=== PATIENT | female | born 1985 | race Asian ===

== ENCOUNTER 2016-10-24 13:15 | Outpatient (CLI) | payer MEDICAID | END 2016-10-24 13:16 | disposition home or self-care (01) | DX: Z13.9 Encounter for screening, unspecified (principal) ==

== ENCOUNTER 2017-07-13 10:20 | Outpatient (CLI) | payer MEDICAID | END 2017-07-13 10:21 | disposition home or self-care (01) | LOC: DI 10:20 | PROVIDERS: ATTEND Nurse Practitioner Gerontology | DX: Z53.9 Procedure and treatment not carried out, unspecified reason (principal) ==

== ENCOUNTER 2017-08-16 21:40 | Emergency (ER) | payer MEDICAID ==
[2017-08-16 21:46] VITALS: BP 108/65
--- NOTE | 2017-08-16 21:58 | ED Physician Documentation ---
PD HPI URI - Stated complaint Stated Complaint: COUGH - Chief complaint Chief Complaint: Heent - History obtained from History obtained from: Patient - History of Present Illness Timing - onset: How many weeks ago (2) Timing details: Gradual onset, Still present Associated symptoms: Productive cough. No: Fever, Chills Contributing factors: No: Sick contact Similar symptoms before: No diagnosis Recently seen: Not recently seen - Additional information Additional information: patient is a 31 year old female with no significant past medical history who is presenting to the emergency department for cough and blood tinged sputum. patient states that she has had a cough for the past couple of weeks. patient noticed today that there were some specks of blood in her cough so she came to the emergency department for evaluation. Review of Systems Constitutional: denies: Fever, Chills Eyes: reports: Reviewed and negative Ears: denies: Ear pain, Drainage/discharge Nose: reports: Congestion. denies: Rhinorrhea / runny nose Throat: denies: Dental pain / toothache, Sore throat Cardiac: denies: Chest pain / pressure Respiratory: reports: Cough, Hemoptysis. denies: Wheezing GI: denies: Nausea, Vomiting : denies: Dysuria, Frequency Skin: denies: Rash, Lesions Musculoskeletal: denies: Neck pain, Back pain Neurologic: reports: Reviewed and negative Psychiatric: reports: Reviewed and negative Endocrine: reports: Reviewed and negative Immunocompromised: denies: Immunocompromised PD PAST MEDICAL HISTORY - Past Medical History Past Medical History: Yes Cardiovascular: None Respiratory: None Neuro: Headache/migraine Endocrine/Autoimmune: None - Past Surgical History Past Surgical History: No - Present Medications Home Medications: Ambulatory Orders Medication Instructions Recorded Confirmed Benzonatate [Tessalon] 100 mg PO TID PRN #20 capsule 08/03/16 Dexamethasone [Decadron] 4 mg PO DAILY #5 tablet 08/03/16 Minocycline HCl [Minocin] 50 mg PO 08/03/16 guaiFENesin/CODEINE [Robitussin AC] 10 ml PO Q6H PRN #240 ml 08/03/16 Benzonatate [Tessalon] 100 mg PO TID #20 capsule 08/16/17 Codeine Phosphate/Guaifenesin 10 ml PO DAILY PRN #120 ml 08/16/17 [Guaifen-Codeine 100-10 mg/5 ml] predniSONE [Prednisone] 40 mg PO DAILY 5 Days tablet 08/16/17 - Allergies Allergies/Adverse Reactions: Allergies Allergy/AdvReac Type Severity Reaction Status Date / Time No Known Drug Allergies Allergy Verified 08/16/17 21:46 - Social History Does the pt smoke?: Yes Smoking Status: Current every day smoker Does the pt drink ETOH?: No Does the pt have substance abuse?: No - Immunizations Immunizations are current?: Yes - POLST Patient has POLST: No PD ED PE NORMAL - Vitals Vital signs reviewed: Yes - General General: Alert and oriented X 3, No acute distress - HEENT HEENT: Atraumatic, PERRL, Moist mucous membranes - Neck Neck: Supple, no meningeal sign, No bony TTP - Cardiac Cardiac: RRR, No murmur - Respiratory Respiratory: No respiratory distress, Clear bilaterally - Abdomen Abdomen: Soft, Non tender, Non distended - Derm Derm: Normal color, Warm and dry, No rash - Extremities Extremities: No deformity, Normal ROM s pain, No edema, No calf tenderness / cord - Neuro Neuro: Alert and oriented X 3, No motor deficit, No sensory deficit, Normal speech - Psych Psych: Normal mood Results - Vitals Vitals: Vital Signs - 24 hr 08/16/17 21:43 Temperature 36.8 C Heart Rate 74 Respiratory 18 Rate Blood Pressure 108/65 O2 Saturation 100 Oxygen O2 Source Room air - Rads (name of study) chest x-ray Radiology: EMP read indepedently (peribronchial thicking no focal infiltrate or consolidation) PD MEDICAL DECISION MAKING - ED course Complexity details: reviewed old records, reviewed results, re-evaluated patient , considered differential, d/w patient ED course: Patient was seen and examined at bedside. Imaging was ordered. When patient returned from imaging the results were reviewed. Patient was treated with tessalon and prednisone. Patient required no further inpatient work up and was stable for discharge with outpatient follow up. Departure - Departure Disposition: 01 Home, Self Care Clinical Impression: Bronchitis Condition: Good Instructions: ED Bronchitis Asthmatic Follow-Up: primary,care provider [Other] - Within 3 Days Prescriptions: Benzonatate [Tessalon] 100 mg PO TID #20 capsule Codeine Phosphate/Guaifenesin [Guaifen-Codeine 100-10 mg/5 ml] 10 ml PO DAILY PRN #120 ml PRN Reason: Cough predniSONE [Prednisone] 40 mg PO DAILY 5 Days tablet Comments: Your symptoms today are being caused by bronchitis. You have been prescribed steroids and two different cough medicines. If you take the cough medicine with codeine you should not drive or operate any machinery while taking it. The best thing you can do is to quit smoking both cigarettes and marijuana. You should follow up with your doctor if your symptoms persist. You may return to the emergency department at any time for new, worsening or uncontrollable symptoms.
[2017-08-16] MEDS ORDERED: predniSONE 20 MG TABLET PO STA (22:13)
[2017-08-16] MEDS ORDERED: BENZONATATE 100 MG CAPSULE PO STA (22:13)
--- NOTE | 2017-08-16 22:30 | XRAY Report ---
EXAM: CHEST RADIOGRAPHY EXAM DATE: 08/16/2017 10:06 PM. CLINICAL HISTORY: Cough, hemoptysis. COMPARISON: None. TECHNIQUE: 2 views. FINDINGS: Lungs/Pleura: No focal opacities evident. No pleural effusion. No pneumothorax. Normal volumes. Mediastinum: Heart and mediastinal contours are unremarkable. Other: None. IMPRESSION: Normal 2-view chest radiography. [facility] Referring Provider Line: [phone] SITE ID: [id number]
== END 2017-08-16 22:29 | disposition home or self-care (01) ==
LOC: ED 21:40
DX: J40 Bronchitis, not specified as acute or chronic (principal); F17.200 Nicotine dependence, unspecified, uncomplicated
CPT/HCPCS: 71046; 99283; A9270; J7512

== ENCOUNTER 2018-02-26 08:00 | Outpatient (CLI) | payer MEDICAID ==
[2018-02-26 19:02] LABS: BASOPHILS % (AUTO) 0.5 %; EOSINOPHILS # (AUTO) 0.2 10^3/uL (0.0-0.7); HGB - HEMOGLOBIN 13.2 g/dL (12.0-16.0); LYMPHOCYTES # (AUTO) 2.4 10^3/uL (1.5-3.5); LYMPHOCYTES % (AUTO) 33.6 %; MEAN CORPUSCULAR HEMOGLOBIN 33.4 pg (27.0-31.0); MEAN CORPUSCULAR HGB CONC 33.2 g/dL (32.0-36.0); MEAN CORPUSCULAR VOLUME 100.7 fL (81.0-99.0); MEAN PLATELET VOLUME 8.9 fL (7.9-10.8); MONOCYTES # (AUTO) 0.5 10^3/uL (0.0-1.0); MONOCYTES % (AUTO) 7.1 %; NEUTROPHILS % (AUTO) 55.8 %; PLT - PLATELET COUNT 285 10^3/uL (130-450); RED BLOOD COUNT 3.95 10^6/uL (4.20-5.40); RED CELL DISTRIBUTION WIDTH 13.2 % (12.0-15.0); WHITE BLOOD COUNT 7.1 x10^3/uL (4.8-10.8)
[2018-02-26 19:20] LABS: ALBUMIN 4.4 g/dL (3.2-5.5); ALBUMIN/GLOBULIN RATIO 1.2 (1.0-2.2); ALKALINE PHOSPHATASE 47 IU/L (42-121); ALT ALANINE AMINOTRANSFERASE 25 IU/L (10-60); AST ASPARTATE AMINOTRANSFERASE 29 IU/L (10-42); BILIRUBIN,TOTAL 0.5 mg/dL (0.2-1.0); BUN - BLOOD UREA NITROGEN 6 mg/dL (6-20); CALCIUM 9.3 mg/dL (8.5-10.3); CARBON DIOXIDE - CO2 27 mmol/L (21-32); CHLORIDE 102 mmol/L (101-111); CHOL/HDL RATIO 5.4 (<4.4); CHOLESTEROL 223 mg/dL; CREATININE 0.7 mg/dL (0.4-1.0); GFR - MDRD 96 (>89); GLUCOSE 83 mg/dL (70-100); HDL CHOLESTEROL 41 mg/dL; LDL CHOLESTEROL,CALCULATED 156 mg/dL; LDL/HDL RATIO 3.8 (<4.4); SODIUM 136 mmol/L (135-145); VLDL CHOLESTEROL 26 mg/dL
== END 2018-02-26 08:01 ==
LOC: LAB.N 08:00
PROVIDERS: ATTEND Nurse Practitioner Gerontology
DX: Z13.9 Encounter for screening, unspecified (principal)
CPT/HCPCS: 36415; 80053; 80061; 83721; 84443; 85025

== ENCOUNTER 2018-11-07 21:43 | Emergency (ER) | payer SELFPAY ==
--- NOTE | 2018-11-07 22:21 | ED Physician Documentation ---
PD HPI NVD - Stated complaint Stated Complaint: VOMITING/POST OP - Chief complaint Chief Complaint: General - History obtained from History obtained from: Patient - History of Present Illness Timing - onset: Today (at 12:30, had tooth extracted due to abrupt swelling/infection the past day. Has local pain and took [place] PO, with subsequent nausea and vomiting several times through the afternoon. no N/V prior to the medication.) Timing - details: Abrupt onset, Still present, Waxing and waning (still nausea and some vomiting through the afternoon. Tooth hurting a lot.) Associated symptoms: No: Fever Recently seen: Clinic (had dental extraction due to acute infection.) Review of Systems Constitutional: denies: Fever Nose: denies: Rhinorrhea / runny nose, Congestion Throat: denies: Sore throat Respiratory: denies: Cough PD PAST MEDICAL HISTORY - Past Medical History Cardiovascular: None Respiratory: None Endocrine/Autoimmune: None - Past Surgical History Past Surgical History: No - Present Medications Home Medications: Ambulatory Orders Medication Instructions Recorded Confirmed Ondansetron Odt [Zofran] 4 mg TL Q6H PRN #10 tablet 11/07/18 Tramadol HCl 50 mg PO Q6H PRN #15 tablet 11/07/18 - Allergies Allergies/Adverse Reactions: Allergies Allergy/AdvReac Type Severity Reaction Status Date / Time No Known Drug Allergies Allergy Verified 11/07/18 21:51 - Social History Does the pt smoke?: Yes Smoking Status: Current every day smoker Does the pt drink ETOH?: No Does the pt have substance abuse?: No - Immunizations Immunizations are current?: Yes - POLST Patient has POLST: No PD ED PE NORMAL - Vitals Vital signs reviewed: Yes - General General: Alert and oriented X 3, Well developed/nourished - HEENT HEENT: Pharynx benign, Other (right lower gum with extraction site without clot in the area. No bleeding. ) - Neck Neck: Supple, no meningeal sign, No adenopathy - Cardiac Cardiac: RRR, No murmur - Respiratory Respiratory: Clear bilaterally Results - Vitals Vitals: Oxygen O2 Source Room air PD MEDICAL DECISION MAKING - ED course Complexity details: considered differential (offered dental block for pain but patient declined. Given IM Toradol and Zofran with improved symptoms. ), d/w patient Departure - Departure Disposition: 01 Home, Self Care Clinical Impression: Drug-induced nausea and vomiting Condition: Stable Record reviewed to determine appropriate education?: Yes Instructions: ED Nausea Vomiting Prescriptions: Ondansetron Odt [Zofran] 4 mg TL Q6H PRN #10 tablet PRN Reason: Nausea / Vomiting Tramadol HCl 50 mg PO Q6H PRN #15 tablet PRN Reason: Pain Comments: Use the ondansetron if needed for persistent nausea. For pain you can use ibuprofen or naproxen twice daily and add Tylenol to that. If you are having worse pain you could try alternatively tramadol since the hydrocodone may do so nauseous. The pain should decrease over the next couple of days postextraction as the healing takes place. Discharge Date/Time: 11/07/18 23:44
[2018-11-07] MEDS ORDERED: KETOROLAC 30 MG/ML VIAL IM STA (22:39)
[2018-11-07] MEDS ORDERED: ONDANSETRON ODT 4 MG TABLET TL STA (22:39)
[2018-11-07] MEDS ORDERED: ONDANSETRON ODT 4 MG Prepack 2 TL PRN (23:15)
[2018-11-07] MEDS ORDERED: ONDANSETRON 4 MG/2 ML VIAL IM STA (23:15)
[2018-11-07 23:41] VITALS: BP 97/59
== END 2018-11-07 23:44 | disposition home or self-care (01) ==
LOC: ED 21:43
DX: R11.2 Nausea with vomiting, unspecified (principal); T50.995A Adverse effect of other drugs, medicaments and biological substances, initial encounter; F17.200 Nicotine dependence, unspecified, uncomplicated; Z98.890 Other specified postprocedural states
CPT/HCPCS: 99283; Q0162

== ENCOUNTER 2019-06-02 20:22 | Emergency (ER) | payer MEDICAID ==
[2019-06-02 20:52] LABS: MUDS CUTOFF CONCENTRATIONS CUTOFF CONC BELOW:
[2019-06-02 20:53] LABS: BASOPHILS # (AUTO) 0.1 10^3/uL (0.0-0.1); BASOPHILS % (AUTO) 0.6 %; EOSINOPHILS # (AUTO) 0.3 10^3/uL (0.0-0.7); EOSINOPHILS % (AUTO) 2.4 %; HGB - HEMOGLOBIN 12.6 g/dL (12.0-16.0); LYMPHOCYTES # (AUTO) 3.3 10^3/uL (1.5-3.5); LYMPHOCYTES % (AUTO) 31.2 %; MEAN CORPUSCULAR HEMOGLOBIN 32.3 pg (27.0-31.0); MEAN CORPUSCULAR HGB CONC 33.5 g/dL (32.0-36.0); MEAN CORPUSCULAR VOLUME 96.4 fL (81.0-99.0); MEAN PLATELET VOLUME 10.5 fL (7.9-10.8); MONOCYTES # (AUTO) 0.8 10^3/uL (0.0-1.0); MONOCYTES % (AUTO) 7.1 %; NEUTROPHILS # (AUTO) 6.2 10^3/uL (1.5-6.6); NEUTROPHILS % (AUTO) 58.4 %; PLT - PLATELET COUNT 275 10^3/uL (130-450); RED CELL DISTRIBUTION WIDTH 13.5 % (12.0-15.0); WHITE BLOOD COUNT 10.6 x10^3/uL (4.8-10.8)
--- NOTE | 2019-06-02 20:53 | ED Physician Documentation ---
PD HPI CHEST PAIN - Stated complaint Stated Complaint: SOA - Chief complaint Chief Complaint: Cardiac - History obtained from History obtained from: Patient - History of Present Illness Timing - onset: Other (Her father somewhat suddenly about a month ago. Since then she has had a fairly constant upper chest pressure and back pain and like someone squeezing her neck. Its worse at night when she tries to sleep. She denies wheezing or cough. No pedal edema but she has had some episodes worse on the right than the left. Not on control.) Review of Systems Constitutional: denies: Fever, Chills Cardiac: reports: Chest pain / pressure, Calf pain. denies: Palpitations, Pedal edema Respiratory: reports: Dyspnea. denies: Cough, Hemoptysis, Wheezing PD PAST MEDICAL HISTORY - Past Medical History Cardiovascular: None Respiratory: None Endocrine/Autoimmune: None - Past Surgical History Past Surgical History: No - Present Medications Home Medications: Ambulatory Orders Medication Instructions Recorded Confirmed Ondansetron Odt [Zofran] 4 mg TL Q6H PRN #10 tablet 11/07/18 Tramadol HCl 50 mg PO Q6H PRN #15 tablet 11/07/18 Lorazepam [Ativan] 1 mg PO TID PRN #10 tablet 06/02/19 - Allergies Allergies/Adverse Reactions: Allergies Allergy/AdvReac Type Severity Reaction Status Date / Time No Known Drug Allergies Allergy Verified 11/07/18 21:51 - Social History Does the pt smoke?: Yes Smoking Status: Current every day smoker Does the pt drink ETOH?: No Does the pt have substance abuse?: No - Immunizations Immunizations are current?: Yes - POLST Patient has POLST: No PD ED PE NORMAL - Vitals Vital signs reviewed: Yes - General General: Alert and oriented X 3, No acute distress - HEENT HEENT: PERRL, EOMI - Neck Neck: Supple, no meningeal sign, No bony TTP - Cardiac Cardiac: RRR, No murmur - Respiratory Respiratory: No respiratory distress, Clear bilaterally - Abdomen Abdomen: Non tender - Extremities Extremities: No edema, No calf tenderness / cord - Neuro Neuro: Alert and oriented X 3, Normal speech - Psych Psych: Normal mood, Normal affect Results - Vitals Vitals: Vital Signs - 24 hr 06/02/19 06/02/19 06/02/19 20:37 20:49 21:05 Temperature 36.6 C Heart Rate 89 90 76 Respiratory 17 15 16 Rate Blood Pressure 111/66 99/60 108/59 L O2 Saturation 100 99 100 Oxygen O2 Source Room air - EKG (time done) 2033 Rate: Rate (enter#) (89) Rhythm: NSR [place]: Normal Intervals: Normal DE QRS: Normal Ischemia: Non specific changes (Inverted T wave V3, flat inferior) - Labs Labs: Laboratory Tests 06/02/19 06/02/19 06/02/19 20:41 20:41 20:45 WBC 10.6 RBC 3.90 L Hgb 12.6 Hct 37.6 MCV 96.4 MCH 32.3 H MCHC 33.5 RDW 13.5 Plt Count 275 MPV 10.5 Neut # (Auto) 6.2 Lymph # (Auto) 3.3 [place] # (Auto) 0.8 Eos # (Auto) 0.3 Baso # (Auto) 0.1 Absolute Nucleated RBC 0.00 Nucleated RBC % 0.0 D-Dimer Sodium Potassium Chloride Carbon Dioxide Anion Gap BUN Creatinine Estimated GFR (MDRD) Glucose Calcium Total Bilirubin AST ALT Alkaline Phosphatase Troponin I High Sens Total Protein Albumin Globulin Albumin/Globulin Ratio Lipase Urine Color YELLOW Urine Clarity CLEAR Urine pH 8.0 H Ur Specific [place] 1.010 Urine Protein NEGATIVE Urine Glucose (UA) NEGATIVE Urine Ketones NEGATIVE Urine Occult Blood TRACE-LYSE Urine Nitrite NEGATIVE Urine Bilirubin NEGATIVE Urine Urobilinogen 0.2 (NORMAL) Ur Leukocyte Esterase NEGATIVE Ur Microscopic Review NOT INDICATED Urine Culture Comments NOT INDICATED Urine HCG, Qual NEGATIVE Urine Opiates Screen NEGATIVE Ur Oxycodone Screen NEGATIVE Urine Methadone Screen NEGATIVE Ur Propoxyphene Screen NEGATIVE Ur Barbiturates Screen NEGATIVE Ur Tricyclics Screen NEGATIVE Ur Phencyclidine Scrn NEGATIVE Ur Amphetamine Screen NEGATIVE U Methamphetamines Scrn NEGATIVE U Benzodiazepines Scrn NEGATIVE Urine Cocaine Screen NEGATIVE U Cannabinoids Screen POSITIVE H 06/02/19 06/02/19 06/02/19 20:45 20:45 21:00 WBC RBC Hgb Hct MCV MCH MCHC RDW Plt Count MPV Neut # (Auto) Lymph # (Auto) [place] # (Auto) Eos # (Auto) Baso # (Auto) Absolute Nucleated RBC Nucleated RBC % D-Dimer 204.7 Sodium 138 Potassium 3.0 L Chloride 102 Carbon Dioxide 23 Anion Gap 13.0 BUN < 5 L Creatinine 0.9 Estimated GFR (MDRD) 72 L Glucose 97 Calcium 9.0 Total Bilirubin 0.8 AST 33 ALT 26 Alkaline Phosphatase 45 Troponin I High Sens 2.6 Total Protein 8.0 Albumin 4.7 Globulin 3.3 Albumin/Globulin Ratio 1.4 Lipase 27 Urine Color Urine Clarity Urine pH Ur Specific [place] Urine Protein Urine Glucose (UA) Urine Ketones Urine Occult Blood Urine Nitrite Urine Bilirubin Urine Urobilinogen Ur Leukocyte Esterase Ur Microscopic Review Urine Culture Comments Urine HCG, Qual Urine Opiates Screen Ur Oxycodone Screen Urine Methadone Screen Ur Propoxyphene Screen Ur Barbiturates Screen Ur Tricyclics Screen Ur Phencyclidine Scrn Ur Amphetamine Screen U Methamphetamines Scrn U Benzodiazepines Scrn Urine Cocaine Screen U Cannabinoids Screen - Rads (name of study) 2v chest Radiology: EMP read contemporaneously (normal) PD MEDICAL DECISION MAKING - ED course ED course: 33-year-old woman with chest and neck pressure that started after the sudden of her father. The time course and history are most consistent with anxiety especially in light of the negative work-up showing no evidence of DVT/PE, ACS, CHF, pneumonia. Departure - Departure Disposition: 01 Home, Self Care Clinical Impression: Atypical chest pain Condition: Good Record reviewed to determine appropriate education?: Yes Instructions: ED Chest Pain Atypical Unkn Cause Prescriptions: Lorazepam [Ativan] 1 mg PO TID PRN #10 tablet PRN Reason: Anxiety Comments: As discussed, given the association with tragedy, the time course and description and negative work-up ruling out acute coronary syndrome, blood clots, and other serious causes of your symptoms, I suspect your current symptoms are related to anxiety. Follow-up with your doctor, next available appointment. Return for new or worsening symptoms.
[2019-06-02 20:55] LABS: BILIRUBIN,URINE NEGATIVE (NEGATIVE); GLUCOSE, URINE (UA) NEGATIVE (NEGATIVE); KETONES,URINE (UA) NEGATIVE (NEGATIVE); LEUKOCYTE ESTERASE, URINE NEGATIVE (NEGATIVE); NITRITE,URINE NEGATIVE (NEGATIVE); OCCULT BLOOD,URINE TRACE-LYSE (NEGATIVE); PROTEIN,URINE NEGATIVE (NEGATIVE); UROBILINOGEN,URINE 0.2 (NORMAL) E.U./dL (NORMAL)
[2019-06-02 20:56] LABS: CLARITY,URINE CLEAR (CLEAR); HCG UR QUAL NEGATIVE
[2019-06-02 21:03] LABS: AMPHETAMINE SCREEN,URINE NEGATIVE (NEGATIVE); BENZODIAZEPINES SCREEN, URINE NEGATIVE (NEGATIVE); COCAINE SCREEN URINE NEGATIVE (NEGATIVE); METHADONE SCREEN, URINE NEGATIVE (NEGATIVE); METHAMPHETAMINES SCREEN, URINE NEGATIVE (NEGATIVE); OPIATE SCREEN, URINE NEGATIVE (NEGATIVE); OXYCODONE SCREEN, URINE NEGATIVE (NEGATIVE); PROPOXYPHENE SCREEN, URINE NEGATIVE (NEGATIVE); TRICYCLIC ANTIDEPRESSANT,URINE NEGATIVE (NEGATIVE)
[2019-06-02 21:06] VITALS: BP 108/59
[2019-06-02 21:17] LABS: ALBUMIN 4.7 g/dL (3.2-5.5); ALBUMIN/GLOBULIN RATIO 1.4 (1.0-2.2); ALKALINE PHOSPHATASE 45 IU/L (42-121); ALT ALANINE AMINOTRANSFERASE 26 IU/L (10-60); AST ASPARTATE AMINOTRANSFERASE 33 IU/L (10-42); BILIRUBIN,TOTAL 0.8 mg/dL (0.2-1.0); BUN - BLOOD UREA NITROGEN < 5 mg/dL (6-20); CARBON DIOXIDE - CO2 23 mmol/L (21-32); CHLORIDE 102 mmol/L (101-111); CREATININE 0.9 mg/dL (0.4-1.0); GFR - MDRD 72 (>89); GLUCOSE 97 mg/dL (70-100); LIPASE 27 U/L (22-51); SODIUM 138 mmol/L (135-145)
--- NOTE | 2019-06-02 21:34 | XRAY Report ---
Reason: chest pain Procedure Date: 06/02/2019 Accession Number: [id number] / [id number] Procedure: XR - Chest 2 View X-Ray CPT Code: 03206 FULL RESULT: EXAM: CHEST RADIOGRAPHY EXAM DATE: 06/02/2019 09:06 PM. CLINICAL HISTORY: Chest pain. COMPARISON: CHEST 2 VIEW 08/16/2017 9:54 PM. TECHNIQUE: 2 views. FINDINGS: Lungs/Pleura: No focal opacities evident. No pleural effusion. No pneumothorax. Normal volumes. Mediastinum: Heart and mediastinal contours are unremarkable. Other: None. IMPRESSION: Normal 2-view chest radiography. [facility]
[2019-06-02] MEDS ORDERED: LORazepam 1 MG TABLET PO STA (21:41)
== END 2019-06-02 22:05 | disposition home or self-care (01) ==
LOC: ED 20:22
DX: R07.89 Other chest pain (principal); F17.200 Nicotine dependence, unspecified, uncomplicated
CPT/HCPCS: 36415; 71046; 80053; 80306; 81003; 81025; 83690; 84484; 85025; 85379; 93005; 99283; 99284; J8499; 81001; 87086

== ENCOUNTER 2019-08-01 15:34 | Emergency (ER) | payer MEDICAID ==
[2019-08-01] MEDS ORDERED: LIDOCAINE VISCOUS 2% 15 ML UDC MM STA (17:35)
[2019-08-01] MEDS ORDERED: MAG HYDROX/AL HYDROX/SIMETH 30 ML UDC PO STA (17:35)
--- NOTE | 2019-08-01 17:36 | ED Physician Documentation ---
PD HPI HEENT FB - Chief complaint Chief Complaint: Heent - History obtained from History obtained from: Patient (About a week she has had a stabbing throat pain and feels like something is going down her throat. She had never had this before.) Review of Systems Constitutional: denies: Fever, Chills Nose: denies: Rhinorrhea / runny nose, Congestion Cardiac: denies: Chest pain / pressure, Palpitations Respiratory: denies: Dyspnea, Cough PD PAST MEDICAL HISTORY - Past Medical History Cardiovascular: None Respiratory: None Endocrine/Autoimmune: None - Past Surgical History Past Surgical History: No - Present Medications Home Medications: Ambulatory Orders Medication Instructions Recorded Confirmed Ondansetron Odt [Zofran] 4 mg TL Q6H PRN #10 tablet 11/07/18 Tramadol HCl 50 mg PO Q6H PRN #15 tablet 11/07/18 Lorazepam [Ativan] 1 mg PO TID PRN #10 tablet 06/02/19 Magic Mouthwash 5 ml PO Q4H PRN #120 ml 08/01/19 - Allergies Allergies/Adverse Reactions: Allergies Allergy/AdvReac Type Severity Reaction Status Date / Time No Known Drug Allergies Allergy Verified 08/01/19 15:39 - Social History Does the pt smoke?: Yes Smoking Status: Current every day smoker Does the pt drink ETOH?: No Does the pt have substance abuse?: No - Immunizations Immunizations are current?: Yes - POLST Patient has POLST: No PD ED PE NORMAL - Vitals Vital signs reviewed: Yes - General General: Alert and oriented X 3, No acute distress - HEENT HEENT: Other (Visualized portions of the oropharynx are normal with slightly prominent tonsils and some tonsil stones.) - Neck Neck: Supple, no meningeal sign, No bony TTP, No adenopathy - Neuro Neuro: Alert and oriented X 3, Normal speech - Psych Psych: Normal mood, Normal affect Results - Vitals Vitals: Vital Signs - 24 hr 08/01/19 15:39 Temperature 36.6 C Heart Rate 79 Respiratory 16 Rate Blood Pressure 96/49 L O2 Saturation 99 Oxygen O2 Source Room air - Labs Labs: Laboratory Tests 08/01/19 17:35 Group A Strep Rapid Negative Departure - Departure Disposition: 01 Home, Self Care Clinical Impression: Calculus of tonsil Condition: Good Record reviewed to determine appropriate education?: Yes Instructions: ED Tonsillitis Prescriptions: Magic Mouthwash 5 ml PO Q4H PRN #120 ml PRN Reason: throat pain Comments: It is reasonable to follow-up with an nuclear process engineer if your symptoms are persistent, the closest is in [place], the phone number is [phone].
[2019-08-01 18:06] VITALS: BP 107/84
== END 2019-08-01 18:19 | disposition home or self-care (01) ==
LOC: ED 15:34
DX: J35.8 Other chronic diseases of tonsils and adenoids (principal); F17.200 Nicotine dependence, unspecified, uncomplicated
CPT/HCPCS: 87070; 87430; 99283; A9270

== ENCOUNTER 2020-04-25 08:48 | Emergency (ER) | payer MEDICAID ==
[2020-04-25] MEDS ORDERED: CHERRY SYRUP 10 ML UDC PO ONE (09:14)
[2020-04-25] MEDS ORDERED: KETOROLAC 60 MG/2 ML VIAL IM STA (09:14)
[2020-04-25] MEDS ORDERED: DEXAMETHASONE 10 MG/ML VIAL PO STA (09:14)
--- NOTE | 2020-04-25 09:24 | ED Physician Documentation ---
PD HPI CHEST PAIN - Stated complaint Stated Complaint: CHEST PX - Chief complaint Chief Complaint: Cardiac - History obtained from History obtained from: Patient, Family - History of Present Illness Timing - onset: How many weeks ago (6) Timing - onset during: Rest Timing - duration: Weeks (6) Timing - details: Gradual onset, Still present, Waxing and waning Quality: Sharp, Pain Location: Substernal, Left chest Radiation: No: Jaw, Neck, Back Improved by: Rest Worsened by: Other (expiration) Associated symptoms: No: Shortness of air, Diaphoresis, Nausea, Feeling faint / dizzy, General Weakness, Palpitations, Cough Similar symptoms before: Has not had sx before Recently seen: Not recently seen - Additional information Additional information: 34-year-old female who works at the [employer] and has been wearing a mask at work for 8 hours/day has developed pain along the sternum that radiates along the costal margin on the left side. This pain is worse with expiration and feels somewhat better with compression. She has not had these symptoms previously. She is not feeling short of breath or faint. She denies diaphoresis, nausea or exertional dyspnea associated with this. She feels the pain is worse when she gets home from work. The patient continues to consume red bull at a high rate. She consumes 80 mg of caffeine about once per hour. She is drinking about 16 red bull per day. She has had difficulty with withdrawal symptoms especially headaches with even small reductions in her dose. Review of Systems Constitutional: denies: Fever Eyes: denies: Decreased vision Ears: denies: Ear pain Nose: denies: Rhinorrhea / runny nose, Congestion Throat: denies: Sore throat Cardiac: reports: Chest pain / pressure. denies: Palpitations, Pedal edema, Calf pain Respiratory: denies: Dyspnea, Cough GI: denies: Abdominal Pain, Nausea, Vomiting, Constipation, Diarrhea : denies: Dysuria, Frequency Skin: denies: Rash Musculoskeletal: denies: Neck pain, Back pain, Extremity pain PD PAST MEDICAL HISTORY - Past Medical History Cardiovascular: None Respiratory: None Endocrine/Autoimmune: None - Past Surgical History Past Surgical History: No - Present Medications Home Medications: Ambulatory Orders Medication Instructions Recorded Confirmed Ondansetron Odt [Zofran] 4 mg TL Q6H PRN #10 tablet 11/07/18 Tramadol HCl 50 mg PO Q6H PRN #15 tablet 11/07/18 Lorazepam [Ativan] 1 mg PO TID PRN #10 tablet 06/02/19 Magic Mouthwash 5 ml PO Q4H PRN #120 ml 08/01/19 Meloxicam [Mobic] 15 mg PO DAILY PRN #20 tablet 04/25/20 - Allergies Allergies/Adverse Reactions: Allergies Allergy/AdvReac Type Severity Reaction Status Date / Time No Known Drug Allergies Allergy Verified 04/25/20 08:57 - Social History Does the pt smoke?: Yes Smoking Status: Current every day smoker Does the pt drink ETOH?: No Does the pt have substance abuse?: No - Immunizations Immunizations are current?: Yes - POLST Patient has POLST: No PD ED PE NORMAL - Vitals Vital signs reviewed: Yes - General General: Alert and oriented X 3, No acute distress, Well developed/nourished - HEENT HEENT: Atraumatic, PERRL, EOMI - Neck Neck: Supple, no meningeal sign, No bony TTP - Cardiac Cardiac: RRR, No murmur - Respiratory Respiratory: No respiratory distress, Clear bilaterally, Other (There is chest wall tenderness along the sternal margin especially on the left side and palpation of this area actually makes her symptoms better.) - Abdomen Abdomen: Soft, Non tender - Back Back: No CVA TTP, No spinal TTP - Derm Derm: Normal color, Warm and dry, No rash - Extremities Extremities: No deformity, No edema - Neuro Neuro: Alert and oriented X 3, tassel snipper 2-12 intact, No motor deficit, No sensory deficit, Normal speech Eye Opening: Spontaneous Motor: Obeys Commands Verbal: Oriented GCS Score: 15 - Psych Psych: Normal mood, Normal affect Results - Vitals Vitals: Vital Signs - 24 hr 04/25/20 04/25/20 04/25/20 08:54 09:00 10:00 Temperature 36.6 C Heart Rate 85 73 66 Respiratory 16 11 L 15 Rate Blood Pressure 119/63 107/70 113/71 O2 Saturation 100 100 99 04/25/20 10:30 Temperature 36.9 C Heart Rate 67 Respiratory 15 Rate Blood Pressure 113/76 O2 Saturation 100 Oxygen O2 Source Room air - EKG (time done) 0858 Rate: Rate (enter#) (73) Rhythm: NSR Ischemia: T wave inversion (V2 and V3 similar to prior ) Compare to prior EKG: Unchanged from prior EKG (SPT 06-02-2019 no changes) Computer interpretation: Agree with computer - Labs Labs: Laboratory Tests 04/25/20 04/25/20 04/25/20 09:49 09:49 09:49 WBC 8.7 RBC 3.68 L Hgb 12.0 Hct 34.6 L MCV 94.0 MCH 32.6 H MCHC 34.7 RDW 13.5 Plt Count 267 MPV 10.0 Neut # (Auto) 5.4 Lymph # (Auto) 2.5 [place] # (Auto) 0.6 Eos # (Auto) 0.2 Baso # (Auto) 0.0 Absolute Nucleated RBC 0.00 Nucleated RBC % 0.0 Sodium 140 Potassium 3.5 Chloride 107 Carbon Dioxide 21 Anion Gap 12.0 BUN 9 Creatinine 0.8 Estimated GFR (MDRD) 82 L Glucose 121 H Calcium 9.1 Total Bilirubin 0.3 AST 25 ALT 21 Alkaline Phosphatase 41 L Troponin I High Sens < 2.3 L Total Protein 6.9 Albumin 4.1 Globulin 2.8 Albumin/Globulin Ratio 1.5 Lipase 32 - Rads (name of study) chest Radiology: Prelim report reviewed (Impression: No acute pulmonary process.), EMP read indepedently, See rad report PD MEDICAL DECISION MAKING - ED course Complexity details: reviewed results, re-evaluated patient, considered differential, d/w patient ED course: 34 y/o female with costochondritis has been wearing a mask 8 hours a day and has improvement in her pain with decadron and toradal. (another case of mask condritis) Departure - Departure Disposition: 01 Home, Self Care Clinical Impression: Costochondritis, acute Condition: Stable Instructions: ED Chest Pain Costochondritis Follow-Up: [facility] [Provider Group] Prescriptions: Meloxicam [Mobic] 15 mg PO DAILY PRN #20 tablet PRN Reason: pain Discharge Date/Time: 04/25/20 10:42
--- NOTE | 2020-04-25 09:50 | XRAY Report ---
PROCEDURE: Chest 1 View X-Ray INDICATIONS: Chest pain TECHNIQUE: One view of the chest was acquired. COMPARISON: Chest xray 06/02/19 FINDINGS: Surgical changes and devices: None. Lungs and pleura: No pleural effusions or pneumothorax. Lungs are clear. Mediastinum: Mediastinal contours appear normal. Heart size is normal. Bones and chest wall: No suspicious bony lesions. Overlying soft tissues appear unremarkable. IMPRESSION: No acute pulmonary process. Reviewed by: Valentina Rivera MD on 04/25/2020 9:48 AM PDT Approved by: Valentina Rivera MD on 04/25/2020 9:48 AM PDT Station ID: [id number]
[2020-04-25 09:55] LABS: BASOPHILS % (AUTO) 0.5 %; EOSINOPHILS # (AUTO) 0.2 10^3/uL (0.0-0.7); EOSINOPHILS % (AUTO) 2.5 %; LYMPHOCYTES # (AUTO) 2.5 10^3/uL (1.5-3.5); LYMPHOCYTES % (AUTO) 28.7 %; MEAN CORPUSCULAR HEMOGLOBIN 32.6 pg (27.0-31.0); MEAN CORPUSCULAR HGB CONC 34.7 g/dL (32.0-36.0); MONOCYTES # (AUTO) 0.6 10^3/uL (0.0-1.0); MONOCYTES % (AUTO) 6.7 %; NEUTROPHILS # (AUTO) 5.4 10^3/uL (1.5-6.6); NEUTROPHILS % (AUTO) 61.4 %; PLT - PLATELET COUNT 267 10^3/uL (130-450); RED BLOOD COUNT 3.68 10^6/uL (4.20-5.40); RED CELL DISTRIBUTION WIDTH 13.5 % (12.0-15.0); WHITE BLOOD COUNT 8.7 x10^3/uL (4.8-10.8)
[2020-04-25 10:09] LABS: ALBUMIN 4.1 g/dL (3.2-5.5); ALBUMIN/GLOBULIN RATIO 1.5 (1.0-2.2); BILIRUBIN,TOTAL 0.3 mg/dL (0.2-1.0); CALCIUM 9.1 mg/dL (8.5-10.3); CREATININE 0.8 mg/dL (0.4-1.0); TOTAL PROTEIN 6.9 g/dL (6.7-8.2)
[2020-04-25 10:40] VITALS: BP 113/76
== END 2020-04-25 10:42 | disposition home or self-care (01) ==
LOC: ED 08:48
DX: M94.0 Chondrocostal junction syndrome [Tietze] (principal); R94.31 Abnormal electrocardiogram [ECG] [EKG]; F17.200 Nicotine dependence, unspecified, uncomplicated
CPT/HCPCS: 36415; 71045; 80053; 83690; 84484; 85025; 93005; 96372; 99284; A9270

== ENCOUNTER 2020-11-06 07:32 | Emergency (ER) | payer MEDICAID ==
[2020-11-06 07:48] VITALS: BP 96/69
[2020-11-06] MEDS ORDERED: ONDANSETRON ODT 4 MG TABLET TL STA (07:54)
[2020-11-06] MEDS ORDERED: PENICILLIN VK 250 MG TABLET PO STA (07:54)
--- NOTE | 2020-11-06 07:58 | ED Physician Documentation ---
History of Present Illness - Stated complaint Stated Complaint: THROAT PX/NAUSEA - Chief complaint Chief Complaint: Heent - History obtained from History obtained from: Patient - History of Present Illness Timing: Today Pain level max: 5 Pain level now: 4 - Additonal information Additional information: Patient is a 35-year-old female who presents to the emergency department complaining of nausea this morning. This is accompanied by pain in her left canine tooth. She has had issues with this tooth for several months, worse over the past month. Has not seen a dentist. She also states that she feels like her tonsil stones are worse than usual. Denies any fevers, chills, cough. No congestion. Nothing makes it better or worse. Denies any possibility of . Review of Systems Constitutional: denies: Fever, Chills Nose: denies: Rhinorrhea / runny nose, Congestion Cardiac: denies: Chest pain / pressure Respiratory: denies: Cough GI: denies: Abdominal Pain, Vomiting, Diarrhea : denies: Dysuria, Frequency, Hesitancy, Now EGA Skin: denies: Rash Musculoskeletal: denies: Neck pain, Back pain Neurologic: denies: Headache PD PAST MEDICAL HISTORY - Past Medical History Cardiovascular: None Respiratory: None Endocrine/Autoimmune: None - Past Surgical History Past Surgical History: No - Present Medications Home Medications: Ambulatory Orders Medication Instructions Recorded Confirmed Ondansetron Odt [Zofran] 4 mg TL Q6H PRN #10 tablet 11/07/18 Tramadol HCl 50 mg PO Q6H PRN #15 tablet 11/07/18 Lorazepam [Ativan] 1 mg PO TID PRN #10 tablet 06/02/19 Magic Mouthwash 5 ml PO Q4H PRN #120 ml 08/01/19 Meloxicam [Mobic] 15 mg PO DAILY PRN #20 tablet 04/25/20 Ondansetron Odt [Zofran] 4 mg TL Q6H PRN #10 tablet 11/06/20 Penicillin V Potassium 500 mg PO Q6HR #40 tablet 11/06/20 - Allergies Allergies/Adverse Reactions: Allergies Allergy/AdvReac Type Severity Reaction Status Date / Time No Known Drug Allergies Allergy Verified 11/06/20 07:48 - Social History Does the pt smoke?: Yes Smoking Status: Current every day smoker Does the pt drink ETOH?: No Does the pt have substance abuse?: No - Immunizations Immunizations are current?: Yes - POLST Patient has POLST: No PD ED PE NORMAL - Vitals Vital signs reviewed: Yes - General General: Alert and oriented X 3, No acute distress, Well developed/nourished - HEENT HEENT: PERRL, Moist mucous membranes, Other (Dental caries, left upper canine. No gingival swelling. No abscess. Normal examination of the posterior oropharynx. No visible stones. No swelling. No abscess. Normal phonation. No trismus) - Neck Neck: Supple, no meningeal sign, No adenopathy, No JVD - Cardiac Cardiac: RRR - Respiratory Respiratory: No respiratory distress, Clear bilaterally - Derm Derm: Warm and dry - Neuro Neuro: Alert and oriented X 3 - Psych Psych: Normal mood, Normal affect Results - Vitals Vitals: Vital Signs - 24 hr 11/06/20 07:44 Temperature 36.7 C Heart Rate 88 Respiratory 12 Rate Blood Pressure 96/69 O2 Saturation 100 Oxygen O2 Source Room air PD MEDICAL DECISION MAKING - ED course Complexity details: considered differential, d/w patient ED course: 35-year-old female with nausea and dental caries. Will place on antibiotics for this. Patient is well-appearing, nontoxic. Afebrile. She also appears to have recurrent tonsil stones. She has been referred to ENT previously, has not followed up. Encouraged her to follow-up with her doctor and ENT as well. Patient counseled regarding signs and symptoms for which I believe and urgent re-evaluation would be necessary. Patient with good understanding of and agreement to plan and is comfortable going home at this time This document was made in part using voice recognition software. While efforts are made to proofread this document, sound alike and grammatical errors may occur. Departure - Departure Disposition: 01 Home, Self Care Clinical Impression: Dental caries, Tonsil stone, Nausea Condition: Good Instructions: ED Cavity Dental Follow-Up: your,dentist next week [Other] your,doctor in 1 week [Other] Prescriptions: Penicillin V Potassium 500 mg PO Q6HR #40 tablet Ondansetron Odt [Zofran] 4 mg TL Q6H PRN #10 tablet PRN Reason: Nausea / Vomiting Comments: Take all antibiotics until gone. Follow-up with your doctor for further care. Return if you worsen. It is important that you follow-up with a dentist regarding your tooth.
== END 2020-11-06 08:06 | disposition home or self-care (01) ==
LOC: ED 07:32
DX: K02.9 Dental caries, unspecified (principal); J35.8 Other chronic diseases of tonsils and adenoids; R11.0 Nausea; F17.200 Nicotine dependence, unspecified, uncomplicated
CPT/HCPCS: 99282; 99284; A9270; Q0162

== ENCOUNTER 2021-03-22 08:00 | Outpatient (CLI) | payer MEDICAID ==
[2021-03-22 12:42] LABS: BASOPHILS % (AUTO) 0.3 %; EOSINOPHILS # (AUTO) 0.1 10^3/uL (0.0-0.7); EOSINOPHILS % (AUTO) 1.1 %; HCT - HEMATOCRIT 38.6 % (37.0-47.0); HGB - HEMOGLOBIN 13.2 g/dL (12.0-16.0); LYMPHOCYTES # (AUTO) 2.1 10^3/uL (1.5-3.5); LYMPHOCYTES % (AUTO) 22.8 %; MEAN CORPUSCULAR HEMOGLOBIN 32.6 pg (27.0-31.0); MEAN CORPUSCULAR HGB CONC 34.2 g/dL (32.0-36.0); MEAN CORPUSCULAR VOLUME 95.3 fL (81.0-99.0); MEAN PLATELET VOLUME 10.8 fL (7.9-10.8); MONOCYTES # (AUTO) 0.5 10^3/uL (0.0-1.0); MONOCYTES % (AUTO) 5.1 %; NEUTROPHILS # (AUTO) 6.5 10^3/uL (1.5-6.6); NEUTROPHILS % (AUTO) 70.4 %; PLT - PLATELET COUNT 259 10^3/uL (130-450); RED BLOOD COUNT 4.05 10^6/uL (4.20-5.40); RED CELL DISTRIBUTION WIDTH 13.6 % (12.0-15.0); WHITE BLOOD COUNT 9.2 x10^3/uL (4.8-10.8)
[2021-03-22 12:52] LABS: ALBUMIN 4.5 g/dL (3.2-5.5); ALBUMIN/GLOBULIN RATIO 1.5 (1.0-2.2); BILIRUBIN,TOTAL 0.6 mg/dL (0.2-1.0); CALCIUM 9.2 mg/dL (8.5-10.3); CREATININE 0.8 mg/dL (0.4-1.0); POTASSIUM 3.7 mmol/L (3.5-5.0); TOTAL PROTEIN 7.6 g/dL (6.7-8.2)
[2021-03-22 13:05] LABS: THYROID STIMULATING HORMONE 0.72 uIU/mL (0.34-5.60)
== END 2021-03-22 23:59 | disposition home or self-care (01) ==
LOC: LAB.N 08:00
PROVIDERS: ATTEND Nurse Practitioner
DX: N92.4 Excessive bleeding in the premenopausal period (principal)
CPT/HCPCS: 36415; 80053; 84443; 85025

== ENCOUNTER 2021-08-15 07:12 | Emergency (ER) | payer OTHER, MEDICAID ==
--- NOTE | 2021-08-15 07:54 | ED Physician Documentation ---
PD HPI SYNCOPE - Stated complaint Stated Complaint: FAINTED - Chief complaint Chief Complaint: Neuro - History obtained from History obtained from: Patient, Family - History of Present Illness Witnessed: Witnessed Timing - onset: Today Duration: Seconds (30) Preceding symptoms: Diaphoresis, Dyspnea Associated symptoms: Diaphoresis, Nausea / vomiting (prior to episode similar to always). No: Seizure, Incontinant of urine, Incontinant of stool, Headache, Vision changes, Chest pain, Palpitations, Dyspnea, Abdominal pain Contributing factors: Other (morning nausea) Injury occurred: None Similar symptoms before: Has not had sx before Recently seen: Not recently seen - Additional information Additional information: 35-year-old female who works at the [employer] and drinks a dozen 12 ounce red bowls per day was at work this morning when she dropped her pans and collapsed. She was this was witnessed by her daughter who states that she just saw her mother collapsed and it took about 30 seconds to resuscitate her. She returned to normal and states she feels fine now. She states that she usually gets nausea in the morning and this is been present over the last 3 years since her father . She also states that she has increased her use of red bull since that event and she had excessive use to begin with. She has not eaten this morning but she has had her red bowl.She denies any current illness. She is immunized and boosted against Covid. She has not had syncope previously. Review of Systems Constitutional: denies: Fever, Chills, Myalgias, Fatigue Eyes: denies: Decreased vision Ears: denies: Ear pain Nose: denies: Rhinorrhea / runny nose, Congestion Throat: denies: Dental pain / toothache, Sore throat Cardiac: denies: Chest pain / pressure, Palpitations Respiratory: reports: Dyspnea. denies: Cough GI: reports: Nausea. denies: Abdominal Pain, Vomiting, Constipation, Diarrhea : denies: Dysuria, Frequency Skin: denies: Rash Musculoskeletal: denies: Neck pain, Back pain, Extremity pain Neurologic: reports: Syncope. denies: Generalized weakness, Focal weakness, Numbness, Altered mental status, Headache, Head injury, LOC PD PAST MEDICAL HISTORY - Past Medical History Past Medical History: No Cardiovascular: None Respiratory: None Endocrine/Autoimmune: None - Past Surgical History Past Surgical History: Yes - Present Medications Home Medications: Ambulatory Orders Medication Instructions Recorded Confirmed No Known Home Medications 08/15/21 08/15/21 - Allergies Allergies/Adverse Reactions: Allergies Allergy/AdvReac Type Severity Reaction Status Date / Time No Known Drug Allergies Allergy Verified 08/15/21 07:21 - Social History Does the pt smoke?: Yes Smoking Status: Current every day smoker Does the pt drink ETOH?: No Does the pt have substance abuse?: Yes Substance Use and Type: Marijuana - Immunizations Immunizations are current?: Yes - POLST Patient has POLST: No PD ED PE NORMAL - Vitals Vital signs reviewed: Yes (normal ) - General General: Alert and oriented X 3, No acute distress, Well developed/nourished - HEENT HEENT: Atraumatic, PERRL, EOMI - Neck Neck: Supple, no meningeal sign, No bony TTP - Cardiac Cardiac: RRR, No murmur - Respiratory Respiratory: No respiratory distress, Clear bilaterally - Abdomen Abdomen: Normal bowel sounds, Soft, Non tender, Non distended, No organomegaly - Back Back: No CVA TTP, No spinal TTP - Derm Derm: Normal color, Warm and dry, No rash - Extremities Extremities: No deformity, No edema - Neuro Neuro: Alert and oriented X 3, 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 hand 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, No motor deficit, No sensory deficit, Normal speech Eye Opening: Spontaneous Motor: Obeys Commands Verbal: Oriented GCS Score: 15 - Psych Psych: Normal mood, Normal affect Results - Vitals Vitals: Vital Signs - 24 hr 08/15/21 08/15/21 08/15/21 07:15 07:34 10:16 Temperature 36.6 C 37.3 C Heart Rate 89 80 72 Respiratory 16 12 13 Rate Blood Pressure 107/71 99/65 104/84 H O2 Saturation 100 100 99 08/15/21 10:41 Temperature 37.0 C Heart Rate 72 Respiratory 13 Rate Blood Pressure 99/67 O2 Saturation 99 Oxygen O2 Source Room air - EKG (time done) 0726 Rate: Rate (enter#) (87) Rhythm: NSR QRS: Low voltage Ischemia: T wave inversion (V2-4 ) Compare to prior EKG: Unchanged from prior EKG (SPT 04-25- no significant change) Computer interpretation: Agree with computer - Labs Labs: Laboratory Tests 08/15/21 08/15/21 08/15/21 07:55 08:04 08:04 WBC 9.4 RBC 4.04 L Hgb 13.0 Hct 37.8 MCV 93.6 MCH 32.2 H MCHC 34.4 RDW 13.4 Plt Count 268 MPV 9.9 Neut # (Auto) 7.1 H Lymph # (Auto) 1.7 Hinds # (Auto) 0.5 Eos # (Auto) 0.1 Baso # (Auto) 0.0 Absolute Nucleated RBC 0.00 Nucleated RBC % 0.0 D-Dimer 278.0 H Sodium Potassium Chloride Carbon Dioxide Anion Gap BUN Creatinine Estimated GFR (MDRD) Glucose Calcium Total Bilirubin AST ALT Alkaline Phosphatase Troponin I High Sens Total Protein Albumin Globulin Albumin/Globulin Ratio Lipase Urine Color STRAW Urine Clarity CLEAR Urine pH 7.5 Ur Specific [place] 1.010 Urine Protein NEGATIVE Urine Glucose (UA) NEGATIVE Urine Ketones NEGATIVE Urine Occult Blood LARGE H Urine Nitrite NEGATIVE Urine Bilirubin NEGATIVE Urine Urobilinogen 0.2 (NORMAL) Ur Leukocyte Esterase SMALL H Urine RBC 11-25 H Urine WBC 6-10 H Ur Squamous Epith Cells MOD Squamous H Urine Bacteria Rare Ur Microscopic Review INDICATED Urine Culture Comments NOT INDICATED Urine HCG, Qual NEGATIVE 08/15/21 08/15/21 08:04 08:04 WBC RBC Hgb Hct MCV MCH MCHC RDW Plt Count MPV Neut # (Auto) Lymph # (Auto) Hinds # (Auto) Eos # (Auto) Baso # (Auto) Absolute Nucleated RBC Nucleated RBC % D-Dimer Sodium 137 Potassium 3.3 L Chloride 103 Carbon Dioxide 24 Anion Gap 10.0 BUN 7 Creatinine 0.8 Estimated GFR (MDRD) 81 L Glucose 95 Calcium 9.0 Total Bilirubin 0.9 AST 43 H ALT 46 Alkaline Phosphatase 49 Troponin I High Sens 2.9 Total Protein 7.7 Albumin 4.7 Globulin 3.0 Albumin/Globulin Ratio 1.6 Lipase 28 Urine Color Urine Clarity Urine pH Ur Specific [place] Urine Protein Urine Glucose (UA) Urine Ketones Urine Occult Blood Urine Nitrite Urine Bilirubin Urine Urobilinogen Ur Leukocyte Esterase Urine RBC Urine WBC Ur Squamous Epith Cells Urine Bacteria Ur Microscopic Review Urine Culture Comments Urine HCG, Qual - Rads (name of study) CTA chest Radiology: Prelim report reviewed (Impression: Negative for pulmonary embolism. Clear lungs.), EMP read indepedently, See rad report Procedures - IVC sono (time) 0750 Bedside IVC sono: IVC measures (cm) (1.89), IVC collapsed c insp (cm) (0.91), Euvolemia PD MEDICAL DECISION MAKING - ED course Complexity details: re-evaluated patient, considered differential, d/w patient ED course: 35 y/o female with a syncopal episode after nausea while standing appears euvolemic on interrogation of the IVC, has normal EKG and rhythm on monitoring. We did extensive testing including a CT angio of the chest after a mildly elevated D-dimer mainly because of the patient's family history of of her father suddenly 3 years ago. All of the testing we did was reassuring and ultimately the patient was discharged to home with the diagnosis of vasovgal syncope. Departure - Departure Disposition: , Self Care Clinical Impression: Vasovagal syncope Condition: Stable Instructions: ED Syncope Vasovagal Follow-Up: [facility] [Provider Group] Comments: Abril, today we have done extensive testing to eliminate more serious causes of fainting. The episode you describe is most consistent with a vaso-vagal episode which can happen any time that you become nauseated or have painful stimuli or even from emotional events. We did not find any significant abnormality to your work up and the expectation is that you will do well ---- just like you said you would. I am reassured as I suspect you and your daughter are. In the future if you feel nauseated and sweaty sit down and put your head between your legs and this should pass without passing out. Discharge Date/Time: 08/15/21 10:50
[2021-08-15 08:09] LABS: BASOPHILS % (AUTO) 0.4 %; EOSINOPHILS # (AUTO) 0.1 10^3/uL (0.0-0.7); EOSINOPHILS % (AUTO) 0.9 %; HCT - HEMATOCRIT 37.8 % (37.0-47.0); LYMPHOCYTES # (AUTO) 1.7 10^3/uL (1.5-3.5); LYMPHOCYTES % (AUTO) 17.6 %; MEAN CORPUSCULAR HEMOGLOBIN 32.2 pg (27.0-31.0); MEAN CORPUSCULAR HGB CONC 34.4 g/dL (32.0-36.0); MEAN CORPUSCULAR VOLUME 93.6 fL (81.0-99.0); MEAN PLATELET VOLUME 9.9 fL (7.9-10.8); MONOCYTES # (AUTO) 0.5 10^3/uL (0.0-1.0); MONOCYTES % (AUTO) 5.6 %; NEUTROPHILS # (AUTO) 7.1 10^3/uL (1.5-6.6); NEUTROPHILS % (AUTO) 75.4 %; PLT - PLATELET COUNT 268 10^3/uL (130-450); RED BLOOD COUNT 4.04 10^6/uL (4.20-5.40); RED CELL DISTRIBUTION WIDTH 13.4 % (12.0-15.0); WHITE BLOOD COUNT 9.4 x10^3/uL (4.8-10.8)
[2021-08-15 08:11] LABS: BILIRUBIN,URINE NEGATIVE (NEGATIVE); GLUCOSE, URINE (UA) NEGATIVE (NEGATIVE); KETONES,URINE (UA) NEGATIVE (NEGATIVE); LEUKOCYTE ESTERASE, URINE SMALL (NEGATIVE); NITRITE,URINE NEGATIVE (NEGATIVE); OCCULT BLOOD,URINE LARGE (NEGATIVE); PH,URINE 7.5 PH (5.0-7.5); PROTEIN,URINE NEGATIVE (NEGATIVE); UROBILINOGEN,URINE 0.2 (NORMAL) E.U./dL (NORMAL)
[2021-08-15 08:18] LABS: CLARITY,URINE CLEAR (CLEAR)
[2021-08-15 08:19] LABS: BACTERIA,URINE Rare /HPF (None Seen); HCG UR QUAL NEGATIVE; SQUAMOUS EPITHELIAL CELL,UR MOD Squamous (<= Few)
[2021-08-15 08:24] LABS: ALBUMIN 4.7 g/dL (3.2-5.5); ALBUMIN/GLOBULIN RATIO 1.6 (1.0-2.2); BILIRUBIN,TOTAL 0.9 mg/dL (0.2-1.0); CREATININE 0.8 mg/dL (0.4-1.0); POTASSIUM 3.3 mmol/L (3.5-5.0); TOTAL PROTEIN 7.7 g/dL (6.7-8.2)
[2021-08-15] MEDS ORDERED: iohexoL-300 100 ML VIAL ONE (09:23)
[2021-08-15] MEDS ORDERED: iohexoL-300 100 ML VIAL IVP ONE (09:47)
--- NOTE | 2021-08-15 10:08 | CT Report ---
PROCEDURE: ANGIO CHEST W/WO INDICATIONS: syncope, elevated D-dimer CONTRAST: IV CONTRAST: Isovue 300 ml: 100 PO CONTRAST: *NO PO CONTRAST TECHNIQUE: After the administration of intravenous contrast, 2 mm axial images were acquired from the pulmonary apices to the posterior costophrenic angles during the arterial phase. In addition, 1 mm lung kernel and 5 mm soft tissue kernel reconstructions were performed. 3-dimensional coronal oblique maximum int ensity projection (MIP) reformats, 8 mm axial MIP, and 5 mm coronal and sagittal MPR reformats were t hen performed through the thorax. For radiation dose reduction, the following was used: automated exp osure control, adjustment of mA and/or kV according to patient size. COMPARISON: Correlation is made with prior chest radiograph, 04/25/2020 FINDINGS: Image quality: Excellent. Pulmonary arteries: Pulmonary arteries are normal in size, and demonstrate no intraluminal filling d efects to suggest central pulmonary embolism. Lungs and pleura: Lungs are clear. No pleural effusions or pneumothorax. Central and peripheral ai rways are patent. Mediastinum: Heart size is normal, without pericardial effusion. No mediastinal or hilar adenopathy . Thoracic aorta is normal in caliber and enhancement. Esophagus is normal in caliber, without hiat al hernia. Bones and chest wall: No suspicious bony lesions. Ribs and thoracic spine appear intact throughout. No axillary or supraclavicular adenopathy. Mammoplasty implants are incidentally noted. The thyr oid is normal in size and there are no incidental findings. Abdomen: Visualized upper abdominal solid organs appear normal in the early arterial phase of enhanc ement. IMPRESSION: Negative for pulmonary embolism. Clear lungs. Reviewed by: Ankush Byrd MD on 08/15/2021 9:06 AM [facility] Approved by: Ankush Byrd MD on 08/15/2021 9:06 AM [facility] Station ID: [id number]
[2021-08-15] MEDS ORDERED: POTASSIUM CHLORIDE 20 MEQ TABLET PO STA (10:28)
[2021-08-15 10:42] VITALS: BP 99/67
== END 2021-08-15 10:50 | disposition home or self-care (01) ==
LOC: ED 07:12
DX: R55 Syncope and collapse (principal); R61 Generalized hyperhidrosis; R11.0 Nausea; R79.89 Other specified abnormal findings of blood chemistry; Z82.41 Family history of sudden cardiac death; F17.200 Nicotine dependence, unspecified, uncomplicated
CPT/HCPCS: 36415; 71275; 80053; 81001; 81025; 83690; 84484; 85025; 85379; 93005; 99284; A9270; Q9967; 81003; 87086

== ENCOUNTER 2022-03-06 14:33 | Emergency (ER) | payer MEDICAID, OTHER ==
[2022-03-06] MEDS ORDERED: MELOXICAM 7.5 MG TABLET PO STA (16:11)
[2022-03-06] MEDS ORDERED: oxyCODONE 5 MG TABLET PO STA (16:11)
[2022-03-06] MEDS ORDERED: CHERRY SYRUP 10 ML UDC PO ONE (16:12)
[2022-03-06] MEDS ORDERED: DEXAMETHASONE 10 MG/ML VIAL PO STA (16:12)
--- NOTE | 2022-03-06 16:14 | ED Physician Documentation ---
History of Present Illness - Stated complaint Stated Complaint: R ARM PX - Chief complaint Chief Complaint: Neuro - History obtained from History obtained from: Patient - History of Present Illness Pain level max: 7 Pain level now: 5 - Additonal information Additional information: 36-year-old female presents to the emergency department with right-sided upper back pain. This been ongoing for the past 5 days or so. Comes and goes. Worse with movement, better with rest. Occasionally has tingling and numbness to the right hand. Denies any trauma. Occasionally has sharp shooting pains to the right shoulder as well. No neck pain. Denies any injury. She works at the [id number]. Patient is right-handed. Denies any possibility of . Worse with movement. Nothing makes it better. Review of Systems Ten Systems: 10 systems reviewed and negative Constitutional: denies: Fever, Chills GI: denies: Vomiting, Diarrhea Skin: denies: Rash Musculoskeletal: denies: Neck pain Neurologic: denies: Headache, Head injury PD PAST MEDICAL HISTORY - Past Medical History Cardiovascular: None Respiratory: None Endocrine/Autoimmune: None - Past Surgical History Past Surgical History: Yes - Present Medications Home Medications: Ambulatory Orders Medication Instructions Recorded Confirmed HYDROcod/ACETAM 5/325 [[place] 5/325] 1 - 2 ea PO Q6H PRN #14 tablet 03/06/22 Meloxicam [Mobic] 7.5 mg PO BID PRN #20 tablet 03/06/22 predniSONE [Deltasone] 10 mg PO [id number] #42 tab 03/06/22 - Allergies Allergies/Adverse Reactions: Allergies Allergy/AdvReac Type Severity Reaction Status Date / Time No Known Drug Allergies Allergy Verified 08/15/21 07:21 - Social History Does the pt smoke?: Yes Smoking Status: Current every day smoker Does the pt drink ETOH?: No Does the pt have substance abuse?: Yes - Immunizations Immunizations are current?: Yes - POLST Patient has POLST: No PD ED PE NORMAL - Vitals Vital signs reviewed: Yes - General General: Alert and oriented X 3, No acute distress, Well developed/nourished - HEENT HEENT: PERRL - Neck Neck: Supple, no meningeal sign, No bony TTP - Cardiac Cardiac: RRR - Respiratory Respiratory: No respiratory distress, Clear bilaterally - Abdomen Abdomen: Soft, Non tender, Non distended - Derm Derm: Warm and dry - Extremities Extremities: Other - Neuro Neuro: Alert and oriented X 3, pet caretaker 2-12 intact, No motor deficit, No sensory deficit - Psych Psych: Normal mood, Normal affect - Free text exam Free text exam: No neck pain or tenderness. She is tender along the right rhomboid muscle. This appears to duplicate her pain. Has pain with stretching of the rhomboid. No midline tenderness on the thoracic spine. Full range of motion of the arm without pain. There is pain with active range of motion of the right arm and shoulder. The pain is in the rhomboid. Results - Vitals Vitals: Vital Signs - 24 hr 03/06/22 03/06/22 03/06/22 14:40 16:42 17:38 Temperature 37.2 C Heart Rate 87 92 80 Respiratory 18 18 18 Rate Blood Pressure 105/50 L 122/88 H 94/60 O2 Saturation 99 97 99 Oxygen O2 Source Room air - Rads (name of study) scapula xray Radiology: Final report received, EMP read contemporaneously, See rad report t spine xray Radiology: Final report received, EMP read contemporaneously, See rad report PD MEDICAL DECISION MAKING - ED course Complexity details: reviewed results, re-evaluated patient, considered differential, d/w patient ED course: No acute findings on x-ray. Appears to have a rhomboid muscle strain/spasm. Also appears to have a radiculopathy component. We gave her pain medication and steroids here. Pain greatly improved. Using the arm well. Neurovascularly intact. No evidence of DVT, dissection, tumors. We will place on pain medication for home, encourage gentle stretching and have her follow-up with her doctor for further care. Patient counseled regarding signs and symptoms for which I believe and urgent re-evaluation would be necessary. Patient with good understanding of and agreement to plan and is comfortable going home at this time This document was made in part using voice recognition software. While efforts are made to proofread this document, sound alike and grammatical errors may occur. Departure - Departure Disposition: 01 Home, Self Care Clinical Impression: Rhomboid muscle strain Qualifiers: Encounter type: initial encounter Qualified Code(s): S29.012A - Strain of muscle and tendon of back wall of thorax, initial encounter Radiculopathy Qualifiers: Spinal region: unspecified Qualified Code(s): M54.10 - Radiculopathy, site unspecified Condition: Good Instructions: ED Spasm Back No Trauma, ED Cervical Radiculopathy Follow-Up: Your,doctor in 1 week [Other] Prescriptions: predniSONE [Deltasone] 10 mg PO [id number] #42 tab Meloxicam [Mobic] 7.5 mg PO BID PRN #20 tablet PRN Reason: Pain HYDROcod/ACETAM 5/325 [[place] 5/325] 1 - 2 ea PO Q6H PRN #14 tablet PRN Reason: Pain Comments: Continue gentle stretching at home. Return if you worsen. A heating pad may help as well. Your prescriptions were sent to [facility] in [place]. I am prescribing a short course of narcotic pain medication for you. These are potentially dangerous and addictive medications that should be used carefully. These medications may constipate you. Take an [id number]-pfgddwa stool softener (docusate) twice daily with plenty of water while taking these medications. If you go 24 hours without a bowel movement, take [id number]-kaj-uddoorv miralax, per package instructions. Do not drink or drive while taking these medications. If you received narcotic or sedating medications while in the emergency department, do not drive for 24 hours. Store this medication in a safe, secure place and out of reach of children. It is a violation of federal law to give or sell this medication to another person or to use in a manner other than prescribed. The ED will not refill narcotic prescriptions, including prescriptions lost or stolen. To dispose of unwanted medications: 1. [facility] at [address] in [place] has a medication drop box. They accept prescription medications (in pill form) Monday through Monday 9:00 a.m. to 5:00 p.m. 2. The [facility] [employer] accepts prescription medications (in pill form only) for disposal year round. Call for more information. 3. Contact the [facility] for the next [facility] sponsored prescription drug collection event. , [phone], or [phone]; Discharge Date/Time: 03/06/22 17:38
--- NOTE | 2022-03-06 16:50 | XRAY Report ---
PROCEDURE: Scapula 2 View RT INDICATIONS: r scapula pain TECHNIQUE: 2 views of the scapula were acquired. COMPARISON: Correlation is made with the accompanying thoracic spine plain films, 03/06/2022. Correla tion is also made with the prior chest CT, 08/15/2021. FINDINGS: Bones: No fractures or dislocations. No suspicious bony lesions. Visualized ribs appear intact. Soft tissues: Overlying soft tissues appear normal. The visualized lung demonstrates a normal appea symone. IMPRESSION: Normal plain films of the scapula. Reviewed by: Ankush Byrd MD on 03/06/2022 3:49 PM [facility] Approved by: Ankush Byrd MD on 03/06/2022 3:49 PM [facility] Station ID: [id number]
--- NOTE | 2022-03-06 16:50 | XRAY Report ---
PROCEDURE: Thoracic Spine 2 View INDICATIONS: upper t -spine pain TECHNIQUE: 2 views of the thoracic spine were acquired. COMPARISON: Correlation is made with the accompanying scapular plain films, 03/06/2022. Correlation i s made with the prior chest CT, 08/15/2021. FINDINGS: Bones: No fractures or dislocations. No suspicious bony lesions. 12 pairs of ribs are noted, and a ppear intact where visualized. Minimal dextroconvex scoliotic curvature is seen. Soft tissues: No paravertebral stripe thickening. IMPRESSION: Plain film study within normal limits for age. If it would be helpful for clinical management decision making, please consider a dedicated, schedule d thoracic spine MRI for further evaluation (assuming that there is no contraindication). Reviewed by: Ankush Byrd MD on 03/06/2022 3:48 PM [facility] Approved by: Ankush Byrd MD on 03/06/2022 3:48 PM [facility] Station ID: [id number]
[2022-03-06 17:40] VITALS: BP 94/60
== END 2022-03-06 17:38 | disposition home or self-care (01) ==
LOC: ED 14:33
DX: S29.012A Strain of muscle and tendon of back wall of thorax, initial encounter (principal); M54.10 Radiculopathy, site unspecified; F17.200 Nicotine dependence, unspecified, uncomplicated
CPT/HCPCS: 72070; 73010; 99282; 99283; A9270

== ENCOUNTER 2023-01-02 10:59 | Emergency (ER) | payer MEDICAID, OTHER ==
[2023-01-02] MEDS ORDERED: IBUPROFEN 400 MG TABLET PO STA (11:48)
--- NOTE | 2023-01-02 11:51 | ED Physician Documentation ---
History of Present Illness - Stated complaint Stated Complaint: RT BREAST DISCOMFORT - Chief complaint Chief Complaint: General - History obtained from History obtained from: Patient - Additonal information Additional information: 37-year-old woman who had breast implants about 8 years ago presents with full lump above the areola for the last 2 to 3 days which is responsive to ibuprofen. This is on the right. There is no discharge. She is not breast-feeding. No fevers. She is finishing up her menses. 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 - Present Medications Home Medications: Ambulatory Orders Medication Instructions Recorded Confirmed No Known Home Medications 01/02/23 01/02/23 - Allergies Allergies/Adverse Reactions: Allergies Allergy/AdvReac Type Severity Reaction Status Date / Time No Known Drug Allergies Allergy Verified 01/02/23 11:16 - Social History Does the pt smoke?: Yes Smoking Status: Current every day smoker Does the pt drink ETOH?: No Does the pt have substance abuse?: Yes Substance Use and Type: Marijuana - Immunizations Immunizations are current?: Yes - POLST Patient has POLST: No PD ED PE NORMAL - Vitals Vital signs reviewed: Yes - General General: Alert and oriented X 3, No acute distress - HEENT HEENT: PERRL, EOMI - Derm Derm: Other (There is a slightly less than 1 cm tender mass consistent with fibrocystic change above the right areola. Exam done with Yael RUSSELL present and chaperoning.) - Neuro Neuro: Alert and oriented X 3, Normal speech Results - Vitals Vitals: Vital Signs - 24 hr 01/02/23 01/02/23 11:14 13:24 Temperature 36.4 C L Heart Rate 81 66 Respiratory 16 19 Rate Blood Pressure 99/53 L 89/54 L O2 Saturation 100 97 Oxygen O2 Source Room air PD Medical Decision Making - ED course ED course: This is a 37-year-old woman who has a painful breast lump most consistent with fibrocystic breast disease. After initial evaluation I had ordered an ultrasound to evaluate. I was notified after several hours by the geoscience technician and the radiologist, Dr. Sullivan that they have a protocol that does not allow ultrasonography to be performed until mammography has been performed. Mammography has to be scheduled as an outpatient. As such there is no diagnos tic work-up available to me today and after 3 hours the patient was discharged. Departure - Departure Disposition: 01 Home, Self Care Clinical Impression: Breast mass Qualifiers: Laterality: right Breast mass location: subareolar Qualified Code(s): N63.41 - Unspecified lump in right breast, subareolar Condition: Good Instructions: ED Breast Mass Uncertain Cause Follow-Up: [facility] [Provider Group] Comments: As discussed, it is very unlikely that this breast mass is anything malignant given The exam and time course. You should follow-up with your primary care physician for evaluation and likely mammogram referral. Return for new or worsening symptoms. Ibuprofen as needed for pain.
[2023-01-02 13:26] VITALS: BP 89/54
== END 2023-01-02 14:47 | disposition home or self-care (01) ==
LOC: ED 10:59
DX: N63.41 Unspecified lump in right breast, subareolar (principal); F17.200 Nicotine dependence, unspecified, uncomplicated
CPT/HCPCS: 99283; 99284; A9270

== ENCOUNTER 2023-03-13 10:26 | Outpatient (CLI) | payer MEDICAID ==
--- NOTE | 2023-03-14 11:22 | Ultrasound Report ---
LIMITED ULTRASOUND OF RIGHT BREAST: 03/13/2023 CLINICAL: Palpable right breast lump. Comparison is made to exam dated: 03/13/2023 mammogram - [facility]. Color flow ultrasound of the right breast 12-1 o'clock region was performed on the areas of interest. Sánchez scale images of the real-time examination were reviewed. There is a 0.8 cm irregular cyst in the right breast at 1 o'clock anterior depth. This irregular cys t is anechoic with a well-defined boundary and posterior acoustic enhancement. This correlates as pa lpated. IMPRESSION: BENIGN There is no sonographic evidence of malignancy. The 0.8 cm irregular cyst in the right breast is benign. Return to annual mammogram screening schedule is recommended. This exam was interpreted at Station ID: [id number]. Electronically Signed By: Milly Kenyon M.D. lk/:03/13/2023 11:50:23 Ultrasound BI-RADS: 2 Benign BI-RADS CATEGORY: (2) - 2 RECOMMENDATION: (ANNUAL) - Recommend routine annual screening mammography. [id number] return to screening LATERALITY: (B)
--- NOTE | 2023-03-14 11:22 | Mammography Report ---
BILATERAL DIGITAL DIAGNOSTIC MAMMOGRAM 3D/2D WITH AUGMENTATION: 03/13/2023 CLINICAL: Baseline exam. Palpable right breast lump. No prior exams were available for comparison. Both breasts are extremely dense, which lowers the sensitivity of mammography (category d />75% gland ular tissue). No significant masses, calcifications, or other findings are seen in either breast. IMPRESSION: INCOMPLETE: NEEDS ADDITIONAL IMAGING EVALUATION The implants are intact. There are no mammographic abnormalities seen in the right breast to corresp ond with the palpable nodularities, however, targeted ultrasound of the right breast is recommended a nd will be performed immediately following this exam. Based on the Tyrer Cuzick model (a risk assessment model) the patients lifetime risk is 7.4% and her 10 year risk is 0.7%. According to the ACR, ACS, and NCCN guidelines, an annual breast MRI exam edyta g with mammogram is recommended if the patients lifetime risk is 20% or greater. This exam was interpreted at Station ID: [id number]. NOTE: For mammograms, a report in lay terms will be sent to the patient. Approximately 15% of breast malignancies will not be visualized mammographically. In the management of a palpable breast mass, a negative mammogram must not discourage biopsy of a clinically suspicious lesion. Electronically Signed By: Milly Kenyon M.D. lk/:03/13/2023 11:36:40 ACR BI-RADS Category 0: Incomplete 3340F PARENCHYMAL PATTERN: (VD) - The breast(s) demonstrate(s) extremely dense parenchyma, limiting the sen sitivity of mammography. BI-RADS CATEGORY: (0) - 0 Ultrasound [id number] Immediate follow-up LATERALITY: (B)
== END 2023-03-13 10:27 | disposition home or self-care (01) ==
LOC: DI 10:26
PROVIDERS: ATTEND Nurse Practitioner
DX: N60.01 Solitary cyst of right breast (principal); Z98.82 Breast implant status

== ENCOUNTER 2023-07-26 19:29 | Emergency (ER) | payer MEDICAID ==
[2023-07-26] MEDS ORDERED: SODIUM CHLORIDE 0.9% 1,000 ML IV STA (19:55)
--- NOTE | 2023-07-26 19:55 | ED Physician Documentation ---
History of Present Illness - Stated complaint Stated Complaint: PREG/NAUSEA/CRAMPING - Chief complaint Chief Complaint: General - History obtained from History obtained from: Patient - History of Present Illness Timing: How many days ago (3-4) Pain level max: 1 Pain level now: 1 - Additonal information Additional information: 37-year-old female, 9 para 3 presents to the emergency department stating she recently found out she was , possibly 3 to 4 weeks and is having some pelvic cramping, no vaginal bleeding. She has had nausea and vomiting for the past 3 to 4 days. Unable to keep anything down. Not on any medications regularly. No urinary symptoms. Review of Systems Constitutional: denies: Fever, Chills Respiratory: denies: Dyspnea, Cough GI: reports: Nausea, Vomiting. 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 - Present Medications Home Medications: Ambulatory Orders Medication Instructions Recorded Confirmed Ondansetron Odt [Zofran] 4 mg TL Q6H PRN #20 tablet 07/26/23 - Allergies Allergies/Adverse Reactions: Allergies Allergy/AdvReac Type Severity Reaction Status Date / Time No Known Drug Allergies Allergy Verified 07/26/23 19:44 - Social History Does the pt smoke?: Yes Smoking Status: Current every day smoker Does the pt drink ETOH?: No Does the pt have substance abuse?: Yes - Immunizations Immunizations are current?: Yes - POLST Patient has POLST: No PD ED PE NORMAL - Vitals Vital signs reviewed: Yes - General General: Alert and oriented X 3, No acute distress - HEENT HEENT: PERRL, Other (Dry lips) - Neck Neck: Supple, no meningeal sign - Cardiac Cardiac: RRR, Strong equal pulses - Respiratory Respiratory: No respiratory distress, Clear bilaterally - Abdomen Abdomen: Soft, Non tender, Non distended - Back Back: No CVA TTP, No spinal TTP - Derm Derm: Warm and dry - Extremities Extremities: No edema - Neuro Neuro: Alert and oriented X 3 - Psych Psych: Normal mood, Normal affect Results - Vitals Vitals: Vital Signs - 24 hr 07/26/23 19:40 Temperature 36.8 C Heart Rate 109 H Respiratory 16 Rate Blood Pressure 124/68 O2 Saturation 100 Oxygen O2 Source Room air - Labs Labs: Laboratory Tests 07/26/23 07/26/23 07/26/23 19:50 20:11 20:11 WBC 13.2 H RBC 4.33 Hgb 13.8 Hct 39.5 MCV 91.2 MCH 31.9 H MCHC 34.9 RDW 12.9 Plt Count 315 MPV 9.9 Neut # (Auto) 9.6 H Lymph # (Auto) 2.6 [place] # (Auto) 0.9 Eos # (Auto) 0.1 Baso # (Auto) 0.0 Absolute Nucleated RBC 0.00 Nucleated RBC % 0.0 Sodium 135 Potassium 3.1 L Chloride 101 Carbon Dioxide 24 Anion Gap 10.0 BUN 10 Creatinine 0.6 Estimated GFR (MDRD) 112 Glucose 95 Calcium 10.2 Total Bilirubin 0.6 AST 25 ALT 25 Alkaline Phosphatase 56 Total Protein 8.9 Albumin 5.4 Globulin 3.5 Albumin/Globulin Ratio 1.5 Lipase 15 Beta HCG, Quant 687522.0 Urine Color YELLOW Urine Clarity HAZY Urine pH 6.0 Ur Specific [place] >=1.030 H Urine Protein >=300 H Urine Glucose (UA) NEGATIVE Urine Ketones 15 H Urine Occult Blood SMALL H Urine Nitrite POSITIVE H Urine Bilirubin NEGATIVE Urine Urobilinogen 1 (NORMAL) Ur Leukocyte Esterase NEGATIVE Urine RBC 6-10 H Urine WBC 0-3 Ur Squamous Epith Cells FEW Squamous Urine Bacteria Few Urine Mucus Moderate Strands Ur Microscopic Review INDICATED Urine Culture Comments INDICATED - Rads (name of study) OB US Relevant Findings:: Final report received, See rad report PD Medical Decision Making - ED course Complexity details: reviewed results, re-evaluated patient, considered differential, d/w patient ED course: Patient is well-appearing, nontoxic. Afebrile. No significant lab abnormalities other than mild hypokalemia. She was given Zofran and IV fluids. Feels much better and is tolerating p.o. without difficulty here. Urinalysis appears contaminated. Ultrasound was performed and shows an IUP with an estimated gestational age of approximately 6 weeks and 2 days. She will follow- up with OB for further care. Will prescribe Zofran for home. Abdomen is soft, nontender nondistended on serial exam. No evidence of ectopic . No vaginal bleeding. Patient counseled regarding signs and symptoms for which I believe and urgent re-evaluation would be necessary. Patient with good und erstanding of and agreement to plan and is comfortable going home at this time This document was made in part using voice recognition software. While efforts are made to proofread this document, sound alike and grammatical errors may occur. Departure - Departure Disposition: 01 Home, Self Care Clinical Impression: Dehydration, Vomiting affecting Condition: Good Instructions: ED Preg Morning Sickness, ED Dehydration Follow-Up: Renata Sharma ARNP [Primary Care Provider] - Within 1 week [facility] [Provider Group] Prescriptions: Ondansetron Odt [Zofran] 4 mg TL Q6H PRN #20 tablet PRN Reason: Nausea / Vomiting Comments: Your prescriptions were sent to [facility] in [place]. Your ultrasound shows an intrauterine at an estimated gestational age of 6 weeks and 2 days. Please follow-up with OB for further care. Please return if you worsen including pain, vaginal bleeding or other new or worrisome symptoms. Forms: PCP List
[2023-07-26 20:00] LABS: GLUCOSE, URINE (UA) NEGATIVE (NEGATIVE); KETONES,URINE (UA) 15 mg/dL (NEGATIVE); LEUKOCYTE ESTERASE, URINE NEGATIVE (NEGATIVE); NITRITE,URINE POSITIVE (NEGATIVE); OCCULT BLOOD,URINE SMALL (NEGATIVE); PROTEIN,URINE >=300 mg/dL (NEGATIVE); UROBILINOGEN,URINE 1 (NORMAL) E.U./dL (NORMAL)
[2023-07-26 20:03] LABS: BILIRUBIN,URINE NEGATIVE (NEGATIVE); CLARITY,URINE HAZY (CLEAR); ICTOTEST,URINE NEGATIVE
[2023-07-26] MEDS ORDERED: ONDANSETRON 4 MG/2 ML VIAL IVP STA (20:14)
[2023-07-26 20:15] LABS: BACTERIA,URINE Few /HPF (None Seen); MUCUS,URINE Moderate Strands; SQUAMOUS EPITHELIAL CELL,UR FEW Squamous (<= Few); WBC,URINE 0-3 /HPF (0-5)
[2023-07-26 20:18] LABS: BASOPHILS % (AUTO) 0.2 %; EOSINOPHILS # (AUTO) 0.1 10^3/uL (0.0-0.7); EOSINOPHILS % (AUTO) 0.6 %; HCT - HEMATOCRIT 39.5 % (37.0-47.0); HGB - HEMOGLOBIN 13.8 g/dL (12.0-16.0); LYMPHOCYTES # (AUTO) 2.6 10^3/uL (1.5-3.5); LYMPHOCYTES % (AUTO) 19.3 %; MEAN CORPUSCULAR HEMOGLOBIN 31.9 pg (27.0-31.0); MEAN CORPUSCULAR HGB CONC 34.9 g/dL (32.0-36.0); MEAN CORPUSCULAR VOLUME 91.2 fL (81.0-99.0); MEAN PLATELET VOLUME 9.9 fL (7.9-10.8); MONOCYTES # (AUTO) 0.9 10^3/uL (0.0-1.0); NEUTROPHILS # (AUTO) 9.6 10^3/uL (1.5-6.6); NEUTROPHILS % (AUTO) 72.7 %; PLT - PLATELET COUNT 315 10^3/uL (130-450); RED BLOOD COUNT 4.33 10^6/uL (4.20-5.40); RED CELL DISTRIBUTION WIDTH 12.9 % (12.0-15.0); WHITE BLOOD COUNT 13.2 x10^3/uL (4.8-10.8)
[2023-07-26 20:51] LABS: ALBUMIN 5.4 g/dL (3.2-5.5); ALBUMIN/GLOBULIN RATIO 1.5 (1.0-2.2); BILIRUBIN,TOTAL 0.6 mg/dL (0.2-1.0); CALCIUM 10.2 mg/dL (8.5-10.3); CREATININE 0.6 mg/dL (0.6-1.3); POTASSIUM 3.1 mmol/L (3.5-4.5); TOTAL PROTEIN 8.9 g/dL (6.4-8.9)
[2023-07-26 21:31] VITALS: BP 101/59; O2SAT 98
--- NOTE | 2023-07-26 22:08 | Ultrasound Report ---
PROCEDURE: OB First Trimester w/TV INDICATIONS: pelvic pain, 4-5 weeks preg OUTSIDE/PRIOR DATING DATA: Last menstrual period (LMP): 06/15/2023. LMP-based estimated date of delivery (ANSHUL): 03/21/2024. First dating scan (date and location): 07/26/2023. Estimated date of delivery (ANSHUL) from first dating scan: 03/18/2024. TECHNIQUE: Real-time scanning was performed of the fetus and maternal pelvic organs, with image documentation. Endovaginal scanning was also performed to better visualize the fetus and maternal ovaries. COMPARISON: None. FINDINGS: Single intrauterine gestation is identified measuring approximately 6 weeks and 2 days bas ed off crown-rump length measurement of approximately 0.54 cm. Embryo: pole and a yolk sac is visualized. No evidence for perigestational hemorrhage. Heart rate: 112 bpm. Other: No perigestational fluid collection. Measurement variability in dating: +/- 4 weeks by LMP, +/- 7 days by mean sac diameter (use before 6 weeks gestation if crown-rump length not able to be measured), +/- 5 days by crown-rump length (6-12 weeks gestation). Maternal organs: Ovaries appear within normal limits. Incidental note of a left corpus luteal cyst. IMPRESSION: Single living intrauterine gestation with estimated sonographic gestational age of approximately 6 we eks and 2 days based off crown-rump length measurement. Estimated date of delivery is approximately . Recommend continued clinical surveillance and follow-up routine second trimester anatomy screen ing survey. Reviewed by: Jorge Brower MD on 07/26/2023 10:06 PM [facility] Approved by: Jorge Brower MD on 07/26/2023 10:06 PM PST Station ID: [id number]
== END 2023-07-26 21:30 | disposition home or self-care (01) ==
LOC: ED 19:29
DX: O21.0 Mild hyperemesis gravidarum (principal); O99.281 Endocrine, nutritional and metabolic diseases complicating pregnancy, first trimester; E86.0 Dehydration; Z3A.01 Less than 8 weeks gestation of pregnancy; O99.331 Smoking (tobacco) complicating pregnancy, first trimester; F17.200 Nicotine dependence, unspecified, uncomplicated
CPT/HCPCS: 36415; 80053; 81001; 81003; 83690; 84702; 85025; 87086; 96374; 99284

== ENCOUNTER 2023-08-22 08:00 | Outpatient (CLI) | payer MEDICAID ==
[2023-08-22 16:29] LABS: BILIRUBIN,URINE NEGATIVE (NEGATIVE); GLUCOSE, URINE (UA) NEGATIVE (NEGATIVE); KETONES,URINE (UA) NEGATIVE (NEGATIVE); LEUKOCYTE ESTERASE, URINE NEGATIVE (NEGATIVE); NITRITE,URINE NEGATIVE (NEGATIVE); OCCULT BLOOD,URINE NEGATIVE (NEGATIVE); PROTEIN,URINE NEGATIVE (NEGATIVE); UROBILINOGEN,URINE 0.2 (NORMAL) E.U./dL (NORMAL)
[2023-08-22 16:44] LABS: CLARITY,URINE CLEAR (CLEAR); RBC,URINE 0-5 /HPF (0-5); WBC,URINE 0-3 /HPF (0-5)
[2023-08-22 16:45] LABS: BACTERIA,URINE Rare /HPF (None Seen); SQUAMOUS EPITHELIAL CELL,UR FEW Squamous (<= Few)
== END 2023-08-22 23:59 | disposition home or self-care (01) ==
LOC: LAB.WC 08:00
PROVIDERS: ATTEND Obstetrics & Gynecology
DX: Z34.90 Encounter for supervision of normal pregnancy, unspecified, unspecified trimester (principal)
CPT/HCPCS: 81001; 87086